=== PATIENT | male | born 1985 | race Two or more races ===

== ENCOUNTER 2016-12-23 09:17 | Outpatient (CLI) | payer MEDICAID | END 2016-12-23 09:18 | disposition home or self-care (01) | DX: G60.9 Hereditary and idiopathic neuropathy, unspecified (principal); Z72.0 Tobacco use ==

== ENCOUNTER 2017-02-21 13:34 | Outpatient (CLI) | payer MEDICAID | END 2017-02-21 13:35 | disposition home or self-care (01) | DX: M51.36 Other intervertebral disc degeneration, lumbar region (principal) ==

== ENCOUNTER 2017-03-28 10:21 | Emergency (ER) | payer MEDICAID ==
[2017-03-28] MEDS ORDERED: KETOROLAC 60 MG/2 ML VIAL IM STA (12:18)
[2017-03-28] MEDS ORDERED: DEXAMETHASONE 10 MG/ML VIAL IM STA (12:18)
[2017-03-28] MEDS ORDERED: KETOROLAC 60 MG/2 ML VIAL ONE (12:32)
[2017-03-28] MEDS ORDERED: DEXAMETHASONE 10 MG/ML VIAL ONE (12:32)
== END 2017-03-28 12:50 | disposition home or self-care (01) ==
DX: M54.16 Radiculopathy, lumbar region (principal); R03.0 Elevated blood-pressure reading, without diagnosis of hypertension; F17.200 Nicotine dependence, unspecified, uncomplicated

== ENCOUNTER 2017-04-08 16:42 | Emergency (ER) | payer MEDICAID ==
[2017-04-08 16:52] VITALS: BP 154/116
--- NOTE | 2017-04-08 16:58 | ED Physician Documentation ---
PD HPI LOWER EXT INJURY - Stated complaint Stated Complaint: RT LEG PX - Chief complaint Chief Complaint: General - History obtained from History obtained from: Patient - History of Present Illness PD HPI LOW EXT INJURY LOCATION: Right, Hip, Lower leg, Thigh Type of injury: No: Fall, Twist Where injury occurred: Home Timing - details: Gradual onset, Still present Improved by: No: Rest, Meds Worsened by: Palpating Associated symptoms: Numbness (he has had low back pain for 5 years, treated with PT and chronic pain meds in [place] when lived there. Moved here and has PCP doing med trials and got patine in for PT, which he has done for a month without improvement. He is here due to worse pain. Has numb but yet more intensely sensitive front thigh. No involvement in lower GI.) Similar symptoms before: Diagnosis (lumbar radiculopathy) Review of Systems Constitutional: denies: Fever Skin: denies: Rash PD PAST MEDICAL HISTORY - Past Medical History Cardiovascular: None Respiratory: None Neuro: None Endocrine/Autoimmune: None GI: None : None HEENT: None Psych: None Musculoskeletal: None Derm: None - Past Surgical History Past Surgical History: Yes General: Other - Present Medications Home Medications: Ambulatory Orders Medication Instructions Recorded Confirmed Cyclobenzaprine [Flexeril] 10 mg PO TID PRN #20 tablet 03/28/17 oxyCODONE [Roxicodone] 5 mg PO Q4-6H PRN #20 tablet 03/28/17 predniSONE [Deltasone] 20 mg PO [id number] #21 tab 03/28/17 Amitriptyline HCl 50 mg PO DAILY #30 tablet 04/08/17 Cyclobenzaprine [Flexeril] 10 mg PO TID PRN #30 tablet 04/08/17 oxyCODONE [Roxicodone] 5 mg PO TID PRN #30 tablet 04/08/17 - Allergies Allergies/Adverse Reactions: Allergies Allergy/AdvReac Type Severity Reaction Status Date / Time acetaminophen AdvReac Cramps Verified 03/28/17 10:34 aspirin AdvReac Cramps Verified 03/28/17 10:34 - Social History Does the pt smoke?: Yes Smoking Status: Current every day smoker Does the pt drink ETOH?: No Does the pt have substance abuse?: No - Immunizations Immunizations are current?: Yes - POLST Patient has POLST: No PD ED PE NORMAL - Vitals Vital signs reviewed: Yes - General General: Alert and oriented X 3, Well developed/nourished - Derm Derm: Warm and dry. No: Normal color - Neuro Neuro: No motor deficit, No sensory deficit - Psych Psych: Normal mood Results - Vitals Vitals: Vital Signs - 24 hr 04/08/17 16:45 Temperature 36 C L Heart Rate 100 Respiratory 18 Rate Blood Pressure 154/116 H O2 Saturation 98 Oxygen O2 Source Room air Departure - Departure Disposition: Home, Self Care Clinical Impression: Lumbar radiculopathy, Right leg pain Condition: Stable Record reviewed to determine appropriate education?: Yes Instructions: ED Sciatica Follow-Up: [facility] [Provider Group] [facility] [Provider Group] Darwin Savage PA-C [Credentialed Staff Provider] - Prescriptions: Amitriptyline HCl 50 mg PO DAILY #30 tablet Cyclobenzaprine [Flexeril] 10 mg PO TID PRN #30 tablet PRN Reason: Spasms oxyCODONE [Roxicodone] 5 mg PO TID PRN #30 tablet PRN Reason: Pain Comments: Continue the Flexeril for spasms and the Oxycodone for pain as needed as directed. Start Amitryptylline 50 mg nightly to see if helps with overall nerve pain. Follow up with PCP about next steps [facility]. [facility] also lists [facility] and [facility] as accepting your insurance. At least one of your blood pressure readings in the ER today was elevated above the normal level. If you have diagnosed high blood pressure in the past, please be sure you are taking your BP medications and eating low salt diet. If you do not have know high BP, then being high today does not mean it is a termination clerk issue. It might be reactively high to the situation that has you here. You should follow up with your primary care to have the blood pressure checked again in the next few days/week or so to see if it is persistently high. If so, then you may need medication or changes in diet/lifestyle to treat it. Discharge Date/Time: 04/08/17 17:56
[2017-04-08] MEDS ORDERED: CYCLOBENZAPRINE 10 MG TABLET PO STA (17:33)
[2017-04-08] MEDS ORDERED: oxyCODONE 5 MG TABLET PO STA (17:33)
[2017-04-08] MEDS ORDERED: oxyCODONE 5 MG TABLET ONE (17:47)
[2017-04-08] MEDS ORDERED: CYCLOBENZAPRINE 10 MG TABLET PO ONE (17:47)
== END 2017-04-08 17:56 | disposition home or self-care (01) ==
LOC: ED 16:42
DX: M54.16 Radiculopathy, lumbar region (principal); R03.0 Elevated blood-pressure reading, without diagnosis of hypertension; F17.200 Nicotine dependence, unspecified, uncomplicated
CPT/HCPCS: 99283; A9270

== ENCOUNTER 2017-04-12 21:15 | Emergency (ER) | payer MEDICAID ==
[2017-04-12 21:36] VITALS: BP 137/94
[2017-04-12] MEDS ORDERED: HYDROcod/ACET 5/325 Prepack 6 PO STA (23:10)
[2017-04-12] MEDS ORDERED: DOXYCYCLINE 100 MG TABLET PO STA (23:10)
[2017-04-12] MEDS ORDERED: HYDROcod/ACET 5/325 Prepack 6 PO ONE (23:13)
[2017-04-12] MEDS ORDERED: DOXYCYCLINE 100 MG TABLET PO ONE (23:14)
--- NOTE | 2017-04-12 23:14 | ED Physician Documentation ---
History of Present Illness - Stated complaint Stated Complaint: FEVER/COUGH/BACK PX - Chief complaint Chief Complaint: General - History obtained from History obtained from: Patient - History of Present Illness Timing: Other (2 days a very bad cough with significant back pain with coughing and and fevers and chills.) Review of Systems Constitutional: reports: Fever, Chills Nose: denies: Rhinorrhea / runny nose, Congestion Throat: reports: Sore throat Respiratory: reports: Dyspnea, Cough GI: denies: Nausea, Vomiting PD PAST MEDICAL HISTORY - Past Medical History Cardiovascular: None Respiratory: None Neuro: None Endocrine/Autoimmune: None GI: None : None HEENT: None Psych: None Musculoskeletal: None Derm: None - Past Surgical History Past Surgical History: Yes General: Other - Present Medications Home Medications: Ambulatory Orders Medication Instructions Recorded Confirmed Cyclobenzaprine [Flexeril] 10 mg PO TID PRN #20 tablet 03/28/17 oxyCODONE [Roxicodone] 5 mg PO Q4-6H PRN #20 tablet 03/28/17 predniSONE [Deltasone] 20 mg PO [id number] #21 tab 03/28/17 Amitriptyline HCl 50 mg PO DAILY #30 tablet 04/08/17 Cyclobenzaprine [Flexeril] 10 mg PO TID PRN #30 tablet 04/08/17 oxyCODONE [Roxicodone] 5 mg PO TID PRN #30 tablet 04/08/17 Albuterol Sulfate [Proventil Hfa 1 - 2 puffs IH Q4H PRN #1 04/12/17 Inhaler] hfa.aer.ad Doxycycline Hyclate 100 mg PO BID #14 tablet 04/12/17 guaiFENesin/CODEINE [Robitussin AC] 5 - 10 ml PO Q6H PRN #120 ml 04/12/17 - Allergies Allergies/Adverse Reactions: Allergies Allergy/AdvReac Type Severity Reaction Status Date / Time acetaminophen AdvReac Cramps Verified 03/28/17 10:34 aspirin AdvReac Cramps Verified 03/28/17 10:34 - Social History Does the pt smoke?: Yes Smoking Status: Current every day smoker Does the pt drink ETOH?: No Does the pt have substance abuse?: No - Immunizations Immunizations are current?: Yes - POLST Patient has POLST: No PD ED PE NORMAL - Vitals Vital signs reviewed: Yes - General General: Alert and oriented X 3, No acute distress - HEENT HEENT: Pharynx benign - Neck Neck: Supple, no meningeal sign, No bony TTP - Cardiac Cardiac: RRR, No murmur - Respiratory Respiratory: Other (Diminished at both bases with rhonchi at the right base) - Abdomen Abdomen: Soft, Non tender - Derm Derm: Normal color, Warm and dry - Extremities Extremities: No edema, No calf tenderness / cord - Neuro Neuro: Alert and oriented X 3, Normal speech - Psych Psych: Normal mood, Normal affect Results - Vitals Vitals: Vital Signs - 24 hr 04/12/17 21:33 Temperature 37.3 C Heart Rate 110 H Respiratory 17 Rate Blood Pressure 137/94 H O2 Saturation 98 Oxygen O2 Source Room air Departure - Departure Disposition: 01 Home, Self Care Clinical Impression: Bronchitis Condition: Good Record reviewed to determine appropriate education?: Yes Instructions: ED Bronchitis Asthmatic Prescriptions: Doxycycline Hyclate 100 mg PO BID #14 tablet Albuterol Sulfate [Proventil Hfa Inhaler] 1 - 2 puffs IH Q4H PRN #1 hfa.[email or web address] PRN Reason: Cough guaiFENesin/CODEINE [Robitussin AC] 5 - 10 ml PO Q6H PRN #120 ml PRN Reason: Cough Comments: Call your doctor to arrange a follow up appointment. Make the next available appointment. In the interim return anytime if worse or if new symptoms develop. Your blood pressure was elevated today on check in to the emergency department. This does not mean that you have hypertension, it is a common phenomenon to check into the emergency department and have elevated blood pressure. I recommend that you see your primary care physician within the week to have it rechecked when you're feeling better.
== END 2017-04-12 23:20 | disposition home or self-care (01) ==
LOC: ED 21:15
DX: J40 Bronchitis, not specified as acute or chronic (principal); R03.0 Elevated blood-pressure reading, without diagnosis of hypertension; F17.200 Nicotine dependence, unspecified, uncomplicated
CPT/HCPCS: 99283; A9270

== ENCOUNTER 2017-04-30 17:05 | Emergency (ER) | payer MEDICAID ==
[2017-04-30 17:11] VITALS: BP 149/99
--- NOTE | 2017-04-30 17:27 | ED Physician Documentation ---
PD HPI BACK PAIN - Stated complaint Stated Complaint: R LEG PX - Chief complaint Chief Complaint: Ext Problem - History obtained from History obtained from: Patient - History of Present Illness Timing - onset: Other (31-year-old gentleman with chronic sciatica causing right hip and leg pain, burning sensation that affects him daily. There is no saddle anesthesia or incontinence. He is having trouble with his physician right now, not getting any significant treatments and wanting an MRI. There is no acute issue today.) Review of Systems Constitutional: reports: Reviewed and negative Cardiac: reports: Reviewed and negative Respiratory: reports: Reviewed and negative PD PAST MEDICAL HISTORY - Past Medical History Past Medical History: No Cardiovascular: None Respiratory: None Neuro: None Endocrine/Autoimmune: None GI: None : None HEENT: None Psych: None Musculoskeletal: None Derm: None - Past Surgical History Past Surgical History: Yes General: Other - Present Medications Home Medications: Ambulatory Orders Medication Instructions Recorded Confirmed Cyclobenzaprine [Flexeril] 10 mg PO TID PRN #20 tablet 03/28/17 04/30/17 oxyCODONE [Roxicodone] 5 mg PO Q4-6H PRN #20 tablet 03/28/17 04/30/17 predniSONE [Deltasone] 20 mg PO [id number] #21 tab 03/28/17 04/30/17 Amitriptyline HCl 50 mg PO DAILY #30 tablet 04/08/17 04/30/17 Cyclobenzaprine [Flexeril] 10 mg PO TID PRN #30 tablet 04/08/17 04/30/17 oxyCODONE [Roxicodone] 5 mg PO TID PRN #30 tablet 04/08/17 04/30/17 Albuterol Sulfate [Proventil Hfa 1 - 2 puffs IH Q4H PRN #1 04/12/17 04/30/17 Inhaler] hfa.aer.ad Amitriptyline HCl 50 mg PO DAILY #14 tablet 04/30/17 Cyclobenzaprine [Flexeril] 10 mg PO TID PRN #20 tablet 04/30/17 oxyCODONE [Roxicodone] 5 mg PO Q4-6H PRN #14 tablet 04/30/17 - Allergies Allergies/Adverse Reactions: Allergies Allergy/AdvReac Type Severity Reaction Status Date / Time acetaminophen AdvReac Cramps Verified 03/28/17 10:34 aspirin AdvReac Cramps Verified 03/28/17 10:34 - Social History Does the pt smoke?: Yes Smoking Status: Current every day smoker Does the pt drink ETOH?: No Does the pt have substance abuse?: No - Immunizations Immunizations are current?: Yes - POLST Patient has POLST: No PD ED PE NORMAL - Vitals Vital signs reviewed: Yes - General General: Alert and oriented X 3, No acute distress - Neck Neck: Supple, no meningeal sign, No bony TTP - Extremities Extremities: Other (Incomplete numbness over the anterior right thigh with intact patellar and Achilles reflexes.) - Neuro Neuro: Alert and oriented X 3, Normal speech - Psych Psych: Normal mood, Normal affect Results - Vitals Vitals: Vital Signs - 24 hr 04/30/17 17:07 Temperature 36.2 C L Heart Rate 114 H Respiratory 18 Rate Blood Pressure 149/99 H O2 Saturation 97 Oxygen O2 Source Room air PD MEDICAL DECISION MAKING - ED course ED course: There is no acute complaint today, no evidence of cauda equina or epidural abscess. I discussed with him at length that he does have chronic pain issues and that well an MRI may be warranted given the time course, I have no ability to obtain this today and at further prescriptions must be from his primary care physician given that this is his third visit this month for an apparent lumbar radiculopathy. Departure - Departure Disposition: 01 Home, Self Care Clinical Impression: Lumbar radiculopathy Condition: Good Record reviewed to determine appropriate education?: Yes Instructions: ED Sciatica Prescriptions: Amitriptyline HCl 50 mg PO DAILY #14 tablet Cyclobenzaprine [Flexeril] 10 mg PO TID PRN #20 tablet PRN Reason: Pain oxyCODONE [Roxicodone] 5 mg PO Q4-6H PRN #14 tablet PRN Reason: Pain Comments: DISCUSSED, YOU HAVE EVIDENCE OF A RADICULOPATHY "PINCHED NERVE" IN YOUR BACK SENDING PAIN TO YOUR HIP AND LEG. GIVEN THAT THIS HAS BEEN GOING ON FOR 5 YEARS , DISCUSS WITH OUR PCP AN MRI OF YOUR BACK TO SEE IF AN INTERVENTIONAL APPROACH IS WARRANTED GIVEN THAT THIS PAIN SIGNIFICANTLY IMPACTS YOUR DAILY LIFE. PER OUR POLICY THIS EMERGENCY DEPT WILL NOT GIVE NARCOTIC PAIN MEDICATIONS MORE THAN 3 TIMES PER YEAR, OF THIS VISIT YOU ARE SURPASSING THAT BRADLY AND FURTHER PRESCRIPTIONS MUST BE FROM YOUR DOCTOR. Your blood pressure was elevated today on check in to the emergency department. This does not mean that you have hypertension, it is a common phenomenon to check into the emergency department and have elevated blood pressure. I recommend that you see your primary care physician within the week to have it rechecked when you're feeling better.
== END 2017-04-30 17:39 | disposition home or self-care (01) ==
LOC: ED 17:05
DX: M54.16 Radiculopathy, lumbar region (principal); R03.0 Elevated blood-pressure reading, without diagnosis of hypertension; F17.200 Nicotine dependence, unspecified, uncomplicated
CPT/HCPCS: 99283

== ENCOUNTER 2017-06-07 11:42 | Emergency (ER) | payer MEDICAID ==
--- NOTE | 2017-06-07 13:37 | ED Physician Documentation ---
PD HPI BACK PAIN - Stated complaint Stated Complaint: R LEG PX - Chief complaint Chief Complaint: Ext Problem - History obtained from History obtained from: Patient - History of Present Illness Timing - onset: Chronic Timing - duration: Years (5) Timing - details: Constant Pain level max: 8 Pain level now: 8 Location: Lower, Right Quality: Pain, Spasm, Sharp, Aching, Similar to prior episodes Associated symptoms: No: Fever, Weakness, Numbness, Incontinent of urine, Unable to urinate, Hematuria, Incontinent of stool Improves with: Nothing Worsened by: Movement Contributing factors: No: Cancer, IVDA Similar symptoms before: Diagnosis (chronic back pain) - Additional information Additional information: Patient is a 31-year-old gentleman who presents to the emergency department with right lower back and thigh pain. This is chronic and ongoing for the past 5 years. He states that he has recently changed providers and is now following up with a doctor in [place]. He states that his pain has become worse over the past few days and is unable to sleep. Denies any new neurological changes. Has had MRIs in the past, has seen orthopedists in the past, but none recently. No recent spine surgeon consult. No loss of bowel or bladder control. No fevers. He is very unhappy with his prior primary care provider. Review of Systems Constitutional: denies: Fever, Chills Respiratory: denies: Cough GI: denies: Abdominal Pain, Vomiting, Diarrhea : denies: Dysuria, Incontinent Skin: denies: Rash Musculoskeletal: denies: Neck pain Neurologic: denies: Focal weakness, Numbness, Headache PD PAST MEDICAL HISTORY - Past Medical History Past Medical History: Yes Cardiovascular: None Respiratory: None Neuro: None Endocrine/Autoimmune: None GI: None : None HEENT: None Psych: None Musculoskeletal: None, Chronic back pain Derm: None - Past Surgical History Past Surgical History: Yes General: Other Ortho: Carpal Tunnel surgery - Present Medications Home Medications: Ambulatory Orders Medication Instructions Recorded Confirmed Cyclobenzaprine [Flexeril] 10 mg PO TID PRN #20 tablet 03/28/17 06/07/17 Amitriptyline HCl 50 mg PO DAILY #14 tablet 04/30/17 06/07/17 Carisoprodol [Soma] 350 mg PO Q8H PRN #20 tablet 06/07/17 Ibuprofen 1,200 mg PO DAILY 06/07/17 06/07/17 oxyCODONE [Roxicodone] 5 mg PO Q4-6H PRN #10 tablet 06/07/17 - Allergies Allergies/Adverse Reactions: Allergies Allergy/AdvReac Type Severity Reaction Status Date / Time acetaminophen AdvReac Cramps Verified 06/07/17 11:55 aspirin AdvReac Cramps Verified 06/07/17 11:55 - Social History Does the pt smoke?: Yes Smoking Status: Current every day smoker Does the pt drink ETOH?: No Does the pt have substance abuse?: No - Immunizations Immunizations are current?: Yes - POLST Patient has POLST: No PD ED PE NORMAL - Vitals Vital signs reviewed: Yes - General General: Alert and oriented X 3, No acute distress, Well developed/nourished - HEENT HEENT: Moist mucous membranes - Neck Neck: Supple, no meningeal sign - Cardiac Cardiac: RRR, Strong equal pulses - Respiratory Respiratory: No respiratory distress, Clear bilaterally - Abdomen Abdomen: Soft, Non tender, Non distended - Back Back: No spinal TTP, Other (Mild tenderness to palpation bilateral paraspinal, low lumbar. Right greater than left. No midline tenderness to palpation or percussion.) - Derm Derm: Warm and dry - Extremities Extremities: Other (normal bilateral lower extremity patellar and ankle jerk reflexes. Normal great toe extension bilaterally) - Neuro Neuro: Alert and oriented X 3, No motor deficit, No sensory deficit - Psych Psych: Normal mood, Normal affect Results - Vitals Vitals: Vital Signs - 24 hr 06/07/17 06/07/17 11:52 13:47 Temperature 36.1 C L 36.6 C Heart Rate 77 72 Respiratory 14 20 Rate Blood Pressure 145/96 H 138/101 H O2 Saturation 100 98 Oxygen O2 Source Room air PD MEDICAL DECISION MAKING - ED course Complexity details: reviewed old records, re-evaluated patient, considered differential (no cauda equina, no spinal epidural abscess, no fracture, no aortic dissection or evidence of aneursym rupture), d/w patient ED course: Patient is a 31-year-old gentleman with a long-standing history of right low back pain. Patient is driving, so no altering medications were given in the emergency department. No new neurological deficits. No evidence of cauda equina or epidural abscess. He did recently switch primary care providers and I informed him that he would need to follow-up with them for any further pain medication for his back. Will prescribe a small amount of pain medications today. He is ambulating quite well in the emergency department. Afebrile. Patient counseled regarding signs and symptoms for which I believe and urgent re -evaluation would be necessary. Patient with good understanding of and agreement to plan and is comfortable going home at this time This document was made in part using voice recognition software. While efforts are made to proofread this document, sound alike and grammatical errors may occur. Departure - Departure Disposition: Home, Self Care Clinical Impression: Lumbar radiculopathy Condition: Good Instructions: ED Sciatica Follow-Up: your,doctor in 1 week [Other] Prescriptions: oxyCODONE [Roxicodone] 5 mg PO Q4-6H PRN #10 tablet PRN Reason: back pain Carisoprodol [Soma] 350 mg PO Q8H PRN #20 tablet PRN Reason: back pain Comments: You need to follow-up with your new doctor in [place] for your chronic back pain issues. Further medications will need to come from them. Do not drink alcohol or drive while on narcotic pain medicine. Note that many narcotic pain relievers also contain tylenol/acetaminophen. Please ensure that your total dose of acetaminophen from all sources does not exceed 3 grams (3000mg) per day. You may constipated on this medication, take a stool softener such as "Colace" twice a day while you are on it. Also recommend a [id number] laxative such as senna or MiraLAX any day that you do not have a bowel movement. If you received narcotic pain medication in the emergency department, do not drive or operate machinery for the next 24 hours. Discharge Date/Time: 06/07/17 13:49
[2017-06-07 13:49] VITALS: BP 138/101
== END 2017-06-07 13:49 | disposition home or self-care (01) ==
LOC: ED 11:42
DX: M54.16 Radiculopathy, lumbar region (principal); F17.200 Nicotine dependence, unspecified, uncomplicated
CPT/HCPCS: 99283

== ENCOUNTER 2017-07-09 18:33 | Emergency (ER) | payer MEDICAID ==
[2017-07-09 18:57] VITALS: BP 136/89
--- NOTE | 2017-07-09 20:01 | ED Physician Documentation ---
PD HPI BACK PAIN - Stated complaint Stated Complaint: BACK PX - Chief complaint Chief Complaint: Back Pain - History obtained from History obtained from: Patient - History of Present Illness Timing - onset: Chronic (5 years) Timing - duration: Years (5) Timing - details: Gradual onset, Constant Pain level max: 8 Pain level now: 8 Location: Lower, Right Quality: Pain, Spasm, Similar to prior episodes Associated symptoms: No: Fever, Weakness, Numbness, Incontinent of urine, Unable to urinate, Hematuria, Incontinent of stool Improves with: Rest Worsened by: Movement Contributing factors: No: Lifting, Twisting, Trauma, Anticoagulated, Cancer, IVDA, Out of meds Similar symptoms before: Diagnosis (chronic back pain, herniated discs) Recently seen: Clinic (for steroid injection yesterday.) Review of Systems Constitutional: denies: Fever, Chills Nose: denies: Rhinorrhea / runny nose, Congestion Throat: denies: Sore throat GI: denies: Nausea, Vomiting, Diarrhea Skin: denies: Rash Musculoskeletal: denies: Neck pain Neurologic: denies: Focal weakness, Numbness, Headache PD PAST MEDICAL HISTORY - Past Medical History Cardiovascular: None Respiratory: None Neuro: None Endocrine/Autoimmune: None GI: None : None HEENT: None Psych: None Musculoskeletal: None, Chronic back pain Derm: None - Past Surgical History Past Surgical History: Yes General: Other Ortho: Carpal Tunnel surgery - Present Medications Home Medications: Ambulatory Orders Medication Instructions Recorded Confirmed Cyclobenzaprine [Flexeril] 10 mg PO TID PRN #20 tablet 03/28/17 06/07/17 Amitriptyline HCl 50 mg PO DAILY #14 tablet 04/30/17 06/07/17 Carisoprodol [Soma] 350 mg PO Q8H PRN #20 tablet 06/07/17 Ibuprofen 1,200 mg PO DAILY 06/07/17 06/07/17 oxyCODONE [Roxicodone] 5 mg PO Q4-6H PRN #10 tablet 06/07/17 oxyCODONE [Roxicodone] 5 mg PO Q4-6H PRN #10 tablet 07/09/17 - Allergies Allergies/Adverse Reactions: Allergies Allergy/AdvReac Type Severity Reaction Status Date / Time acetaminophen AdvReac Cramps Verified 07/09/17 18:57 aspirin AdvReac Cramps Verified 07/09/17 18:57 - Social History Does the pt smoke?: Yes Smoking Status: Current every day smoker Does the pt drink ETOH?: No Does the pt have substance abuse?: No - Immunizations Immunizations are current?: Yes - POLST Patient has POLST: No PD ED PE NORMAL - Vitals Vital signs reviewed: Yes - General General: Alert and oriented X 3, No acute distress - HEENT HEENT: Moist mucous membranes - Neck Neck: Supple, no meningeal sign - Cardiac Cardiac: RRR, Strong equal pulses - Respiratory Respiratory: No respiratory distress, Clear bilaterally - Abdomen Abdomen: Soft, Non tender, Non distended - Back Back: No spinal TTP, Other (R low lumbar injection site without signs of infection.) - Derm Derm: Warm and dry - Neuro Neuro: Alert and oriented X 3 - Psych Psych: Normal mood, Normal affect Results - Vitals Vitals: Vital Signs - 24 hr 07/09/17 18:40 Temperature 36.6 C Heart Rate 114 H Respiratory 14 Rate Blood Pressure 136/89 H O2 Saturation 100 Oxygen O2 Source Room air PD MEDICAL DECISION MAKING - ED course Complexity details: reviewed old records, considered differential (no cauda equina, no spinal epidural abscess, no fracture, no aortic dissection or evidence of aneursym rupture), d/w patient ED course: Patient is a 31-year-old male who presents to the emergency department with chronic back pain. He recently had a steroid injection and the pain seems to be worsened after that. Will prescribe a very small amount of pain medication for home for him. Informed that we will no longer be able to prescribe narcotic pain medication for him from this emergency department due to his number of visits in the past year. He does have a new PCP that he has established with and willl need to obtain further pain medications from them. He is ambulating well in the emergency department. No acute neurological deficits. No evidence of cauda equina, epidural abscess. No fevers. No pain to percussion. Patient counseled regarding signs and symptoms for which I believe and urgent re-evaluation would be necessary. Patient with good understanding of and agreement to plan and is comfortable going home at this time This document was made in part using voice recognition software. While efforts are made to proofread this document, sound alike and grammatical errors may occur. Departure - Departure Disposition: 01 Home, Self Care Clinical Impression: Lumbar radiculopathy Back pain Qualifiers: Back pain location: low back pain Chronicity: chronic Back pain laterality: right Sciatica presence: with sciatica Sciatica laterality: sciatica of right side Qualified Code(s): M54.41 - Lumbago with sciatica, right side Condition: Good Instructions: ED Low Back Pain Injury, ED Sciatica Follow-Up: your,doctor in 1 week [Other] Prescriptions: oxyCODONE [Roxicodone] 5 mg PO Q4-6H PRN #10 tablet PRN Reason: back pain Comments: Return if you worsen. This should improve over the next several days. Follow- up with your doctor on Tuesday. Do not drink alcohol or drive while on narcotic pain medicine. Note that many narcotic pain relievers also contain tylenol/acetaminophen. Please ensure that your total dose of acetaminophen from all sources does not exceed 3 grams (3000mg) per day. You may constipated on this medication, take a stool softener such as "Colace" twice a day while you are on it. Also recommend a qfzh-laj-onlxdis laxative such as senna or MiraLAX any day that you do not have a bowel movement. If you received narcotic pain medication in the emergency department, do not drive or operate machinery for the next 24 hours. Your blood pressure was elevated today on check in to the emergency department. This does not mean that you have hypertension, it is a common phenomenon to check into the emergency department and have elevated blood pressure. I recommend that you see your primary care physician within the week to have it rechecked when you're feeling better. Discharge Date/Time: 07/09/17 20:27
[2017-07-09] MEDS ORDERED: oxyCODONE 5 MG TABLET PO STA (20:18)
[2017-07-09] MEDS ORDERED: oxyCODONE 5 MG TABLET ONE (20:26)
== END 2017-07-09 20:27 | disposition home or self-care (01) ==
LOC: ED 18:33
DX: M54.16 Radiculopathy, lumbar region (principal); M54.41 Lumbago with sciatica, right side; G89.29 Other chronic pain; R03.0 Elevated blood-pressure reading, without diagnosis of hypertension; F17.200 Nicotine dependence, unspecified, uncomplicated
CPT/HCPCS: 99283; A9270

== ENCOUNTER 2017-10-15 11:02 | Outpatient (CLI) | payer MEDICAID ==
--- NOTE | 2017-10-15 18:04 | Ultrasound Report ---
EXAM: INGUINAL ULTRASOUND EXAM DATE: 10/15/2017 11:24 a.m. CLINICAL HISTORY: Right inguinal pain. COMPARISON: None. TECHNIQUE: Real-time sonographic imaging of the inguinal canals and vascular structures, including co aspen-flow, was performed by the manager social. Multiple abrasives sales representative static images were saved for revi ew. FINDINGS: Hernia: None identified with or without Valsalva. Soft Tissues: Normal. No fluid collections or adenopathy. Soft tissue nodular structure measuring 0.8 x 0.6 x 0.7 cm with central vascularity and hypoechoic cortex. Configuration is most consistent with a small morphologically normal lymph node. Second hypoechoic structure measuring 0.9 x 0.8 x 0.6 cm is noted in the subcutaneous fat. Minimal central flow. Overall configuration is indeterminate but be nign in appearance. Other: None. IMPRESSION: 1. No inguinal hernia evident. 2. Probable morphologically normal lymph nodes are present in the right inguinal region measuring 0.8 x 0.6 x 0.7 cm and 0.9 x 0.8 x 0.6 cm, respectively. No concerning features. 3. If symptoms persist or remain concerning, recommend contrast-enhanced CT performed with Valsalva. [facility] Referring Provider Line: [phone] SITE ID: [id number]
== END 2017-10-15 11:03 | disposition home or self-care (01) ==
LOC: DI 11:02
PROVIDERS: ATTEND Student in an Organized Health Care Education/Training Program
DX: R10.31 Right lower quadrant pain (principal)
CPT/HCPCS: 76705

== ENCOUNTER 2017-12-06 14:53 | Outpatient (CLI) | payer MEDICAID ==
--- NOTE | 2017-12-07 09:57 | Ultrasound Report ---
DATE OF SERVICE: 12/06/2017 LIMITED ABDOMINAL ULTRASOUND: 12/06/2017 CLINICAL INDICATION: Palpable abnormalities right flank soft tissues. TECHNIQUE: Real-time scanning was performed with retail account representative static images obtained. FINDINGS: Ultrasound of the palpable abnormalities in the right flank was performed. Three simple lipomas are seen, the largest measuring 1.2 cm in diameter. No sonographically suspicious findings are identified. IMPRESSION: THREE SIMPLE LIPOMAS ACCOUNTING FOR THE PALPABLE ABNORMALITIES. TD: 12/07/2017 10:56
== END 2017-12-06 14:54 | disposition home or self-care (01) ==
LOC: DI 14:53
PROVIDERS: ATTEND Internal Medicine
DX: D17.1 Benign lipomatous neoplasm of skin and subcutaneous tissue of trunk (principal)
CPT/HCPCS: 76705

== ENCOUNTER 2018-01-16 17:59 | Emergency (ER) | payer MEDICAID ==
--- NOTE | 2018-01-16 19:56 | ED Physician Documentation ---
PD HPI BACK PAIN - Stated complaint Stated Complaint: R HIP PX - Chief complaint Chief Complaint: General - History obtained from History obtained from: Patient - History of Present Illness Timing - onset: How many days ago (7-8 days of worse pain at hip; has had anterior thigh pain for months.) Timing - duration: Days Timing - details: Gradual onset, Still present Quality: Pain, Sharp Associated symptoms: Numbness (anterior right thigh.). No: Fever, Weakness Worsened by: Movement, Lifting, Palpation Contributing factors: No: Lifting, Twisting, Trauma Similar symptoms before: No diagnosis Recently seen: Not recently seen Review of Systems Constitutional: denies: Fever, Chills, Myalgias GI: denies: Abdominal Pain, Nausea, Vomiting Skin: denies: Rash PD PAST MEDICAL HISTORY - Past Medical History Past Medical History: Yes Cardiovascular: None Respiratory: None Neuro: None Endocrine/Autoimmune: None GI: None : None HEENT: None Psych: None Musculoskeletal: None, Chronic back pain Derm: None - Past Surgical History Past Surgical History: Yes General: Other Ortho: Carpal Tunnel surgery - Present Medications Home Medications: Ambulatory Orders Medication Instructions Recorded Confirmed Ibuprofen 1,200 mg PO DAILY 06/07/17 06/07/17 Dexamethasone [Decadron] 4 mg PO DAILY #5 tablet 01/16/18 Hydrocodone/Acetaminophen [Vicodin 1 each PO 01/16/18 5-300 mg Tablet] Naproxen [Naprosyn] 500 mg PO BID #20 tablet 01/16/18 - Allergies Allergies/Adverse Reactions: Allergies Allergy/AdvReac Type Severity Reaction Status Date / Time aspirin AdvReac Mild Rash Verified 01/16/18 18:20 acetaminophen AdvReac Cramps Verified 07/09/17 18:57 - Social History Does the pt smoke?: Yes Smoking Status: Current every day smoker Does the pt drink ETOH?: No Does the pt have substance abuse?: No - Immunizations Immunizations are current?: Yes - POLST Patient has POLST: No PD ED PE NORMAL - Vitals Vital signs reviewed: Yes - General General: Alert and oriented X 3, No acute distress, Well developed/nourished - Cardiac Cardiac: RRR, No murmur - Respiratory Respiratory: Clear bilaterally - Abdomen Abdomen: Normal bowel sounds, Soft, Non tender, Non distended - Male Male : Deferred - Rectal Rectal: Deferred - Back Back: No CVA TTP, No spinal TTP - Derm Derm: Normal color, Warm and dry, Other (tender lateral anterior iliac area. no redness.) - Extremities Extremities: No: Normal ROM s pain (pain with external rotation active and crossover knee passively.) Results - Vitals Vitals: Oxygen O2 Source Room air - Rads (name of study) hip/pelvis CT Radiology: Prelim report reviewed (no acute process) PD MEDICAL DECISION MAKING - ED course Complexity details: considered differential (tender over lateral pelvis at iliac spine anteriorly. seems more like bursitis/tendonitis.), d/w patient Departure - Departure Disposition: Home, Self Care Clinical Impression: Acute right hip pain, Chronic pain of right lower extremity, Right hip tendonitis Condition: Stable Record reviewed to determine appropriate education?: Yes Instructions: Tendonitis and Tenosynovitis Prescriptions: Dexamethasone [Decadron] 4 mg PO DAILY #5 tablet Naproxen [Naprosyn] 500 mg PO BID #20 tablet Comments: Continue usual medications. Follow-up with your primary care about refill or further narcotic medicines. Use Decadron daily for the next 5 days as a steroid anti-inflammatory. Add naproxen twice daily for the next 7-10 days. I think there is some irritation in the tendon or bursa around the hip and hopefully this will improve it. Discharge Date/Time: 01/16/18 22:32
[2018-01-16] MEDS ORDERED: TRIAMCINOLONE 40 MG/ML VIAL IM STA (20:14)
[2018-01-16] MEDS ORDERED: KETOROLAC 60 MG/2 ML VIAL IM STA (20:14)
[2018-01-16] MEDS ORDERED: BUPIVACAINE 0.5% PF 30 ML VIAL SUBQ STA (20:14)
[2018-01-16] MEDS ORDERED: HYDROmorphone 1 MG/ML SYRINGE IM STA (20:14)
--- NOTE | 2018-01-16 21:33 | CT Preliminary Report ---
Exam: CT LOWER EXTREMITY RIGHT W/O IMPRESSION: 1. No bony abnormalities. 2. Small bubbles of gas are seen in the distal gluteus medius laterally and also in the subcutaneous soft tissues, presumed to be from injection. 2. Large fat-containing inguinal hernia [facility] SITE ID: [id number]
[2018-01-16 21:54] VITALS: BP 127/86
--- NOTE | 2018-01-16 22:09 | CT Report ---
EXAM: RIGHT HIP CT WITHOUT CONTRAST EXAM DATE: 01/16/2018 09:16 PM. CLINICAL HISTORY: Right hip pain radiating down front of leg. COMPARISON: None. TECHNIQUE: Thin-section axial images were acquired of the hip without contrast. Post-processing: [place] nal and sagittal reformats. Other: None. In accordance with CT protocol optimization, one or more of the following dose reduction techniques w ere utilized for this exam: automated exposure control, adjustment of mA and/or KV based on patient s ize, or use of iterative reconstructive technique. FINDINGS: Bones: No fracture or bone lesion. Joints: The visualized hip joint spaces are normal. No calcified loose bodies. No large effusions. Th e other visualized joint spaces are normal. Musculature: Normal. No fatty atrophy. Other: Small bubbles of gas are seen in the distal gluteus medius and also in the subcutaneous soft t issues, presumed from injection. Large fat-containing inguinal hernia. IMPRESSION: 1. No bony abnormalities. 2. Small bubbles of gas are seen in the distal gluteus medius laterally and also in the subcutaneous soft tissues, presumed to be from injection. 3. Large fat-containing inguinal hernia. [facility] Referring Provider Line: [phone] SITE ID: [id number]
[2018-01-16] MEDS ORDERED: HYDROcod/ACET 5/325 Prepack 6 PO STA (22:11)
== END 2018-01-16 22:32 | disposition home or self-care (01) ==
LOC: ED 17:59
DX: M25.551 Pain in right hip (principal); G89.29 Other chronic pain; M76.891 Other specified enthesopathies of right lower limb, excluding foot; F17.200 Nicotine dependence, unspecified, uncomplicated
CPT/HCPCS: 96372; 99283

== ENCOUNTER 2018-04-25 14:49 | Outpatient (CLI) | payer MEDICAID | END 2018-04-25 14:50 | disposition home or self-care (01) | LOC: SC 14:49 | PROVIDERS: ATTEND Nurse Practitioner Family | DX: G47.33 Obstructive sleep apnea (adult) (pediatric) (principal); E66.9 Obesity, unspecified; Z68.41 Body mass index [BMI] 40.0-44.9, adult; G47.20 Circadian rhythm sleep disorder, unspecified type; G25.81 Restless legs syndrome; G47.00 Insomnia, unspecified; R06.83 Snoring; G47.10 Hypersomnia, unspecified; R53.83 Other fatigue; G31.84 Mild cognitive impairment of uncertain or unknown etiology | CPT/HCPCS: 99204; 99212 ==

== ENCOUNTER 2018-05-05 18:16 | Emergency (ER) | payer MEDICAID ==
--- NOTE | 2018-05-05 18:35 | ED Physician Documentation ---
History of Present Illness - Stated complaint Stated Complaint: SORE THROAT - Chief complaint Chief Complaint: General - History obtained from History obtained from: Patient - History of Present Illness Timing: How many days ago (3) Pain level max: 9 Pain level now: 9 Improved by: nothing Worsened by: swallowing - Additonal information Additional information: Patient is a 32-year-old male who had a tonsillectomy and adenoidectomy [address] [facility] with Dr. Gandhi. He is currently taking oxycodone at home for pain, but states his pain is poorly controlled. States he tried to call Dr. rodriguez today but he was in surgery. Received no call back. Came here for evaluation. No fevers. No bleeding. States it is still painful to swallow. Review of Systems Ten Systems: 10 systems reviewed and negative Constitutional: denies: Fever, Chills Ears: denies: Ear pain Nose: denies: Rhinorrhea / runny nose, Congestion Throat: denies: Sore throat Cardiac: denies: Chest pain / pressure Respiratory: denies: Cough GI: denies: Abdominal Pain, Nausea, Vomiting, Diarrhea Skin: denies: Rash Musculoskeletal: denies: Neck pain, Back pain Neurologic: denies: Headache PD PAST MEDICAL HISTORY - Past Medical History Past Medical History: Yes Cardiovascular: None Respiratory: None Endocrine/Autoimmune: None GI: None : None HEENT: None Psych: None Musculoskeletal: None, Chronic back pain Derm: None - Past Surgical History Past Surgical History: Yes General: Other Ortho: Carpal Tunnel surgery HEENT: Tonsil/Adenoidectomy - Present Medications Home Medications: Ambulatory Orders Medication Instructions Recorded Confirmed Amoxicillin 05/05/18 Lidocaine Viscous 2% [Xylocaine 5 ml PO Q4H PRN #1 bottle 05/05/18 Viscous 2%] Oxycodone HCl 10 ml PO Q4HR 05/05/18 predniSONE [Prednisone] 40 mg PO DAILY #10 tablet 05/05/18 traMADol [Ultram] 50 mg PO BID PRN #14 tablet 05/05/18 - Allergies Allergies/Adverse Reactions: Allergies Allergy/AdvReac Type Severity Reaction Status Date / Time aspirin AdvReac Mild Rash Verified 05/05/18 18:30 acetaminophen AdvReac Cramps Verified 05/05/18 18:30 hydromorphone [From Dilaudid] AdvReac Rash Verified 05/05/18 18:30 - Social History Does the pt smoke?: Yes Smoking Status: Current every day smoker Does the pt drink ETOH?: No Does the pt have substance abuse?: No - Immunizations Immunizations are current?: Yes - POLST Patient has POLST: No PD ED PE NORMAL - Vitals Vital signs reviewed: Yes - General General: Alert and oriented X 3, No acute distress - HEENT HEENT: Moist mucous membranes, Other (pharynx with no signs of infection, mild swelling and mendes from cautery.) - Neck Neck: Supple, no meningeal sign - Cardiac Cardiac: RRR - Respiratory Respiratory: No respiratory distress, Clear bilaterally - Derm Derm: Warm and dry - Neuro Neuro: Alert and oriented X 3 - Psych Psych: Normal mood, Normal affect Results - Vitals Vitals: Vital Signs - 24 hr 05/05/18 05/05/18 18:21 19:04 Temperature 36.6 C 36.7 C Heart Rate 96 95 Respiratory 18 17 Rate Blood Pressure 167/112 H 147/90 H O2 Saturation 97 95 Oxygen O2 Source Room air PD MEDICAL DECISION MAKING - ED course Complexity details: re-evaluated patient (Tolerating p.o. well, well hydrated.) , considered differential, d/w patient, d/w protection consultant ED course: Patient is a 32-year-old male with continued postoperative pain after a tonsillectomy and adenoidectomy 3 days ago. Discussed the case with Dr. Vivas ( production generalist ENT for Dr. Gandhi) And recommends tramadol 50 mg by mouth twice daily and viscous lidocaine as needed for pain. Also recommend steroids. Given dexamethasone here. Will continue supportive care and follow-up with his doctor. Patient counseled regarding signs and symptoms for which I believe and urgent re-evaluation would be necessary. Patient with good understanding of and agreement to plan and is comfortable going home at this time This document was made in part using voice recognition software. While efforts are made to proofread this document, sound alike and grammatical errors may occur. - Sepsis Event Vital Signs: Vital Signs - 24 hr 05/05/18 05/05/18 18:21 19:04 Temperature 36.6 C 36.7 C Heart Rate 96 95 Respiratory 18 17 Rate Blood Pressure 167/112 H 147/90 H O2 Saturation 97 95 Oxygen O2 Source Room air Departure - Departure Disposition: 01 Home, Self Care Clinical Impression: Postoperative pain Condition: Good Instructions: ED Post Op Pain Follow-Up: your,doctor in 1 week [Other] Prescriptions: Lidocaine Viscous 2% [Xylocaine Viscous 2%] 5 ml PO Q4H PRN #1 bottle PRN Reason: throat pain predniSONE [Prednisone] 40 mg PO DAILY #10 tablet traMADol [Ultram] 50 mg PO BID PRN #14 tablet PRN Reason: throat pain Comments: Continue your other medications as previously prescribed. I spoke with Dr. Ortega gardner. Return if you worsen Do not drink alcohol or drive while on narcotic pain medicine. Note that many narcotic pain relievers also contain tylenol/acetaminophen. Please ensure that your total dose of acetaminophen from all sources does not exceed 3 grams (3000mg) per day. You may constipated on this medication, take a stool softener such as "Colace" twice a day while you are on it. Also recommend a vprg-tbm-laisywt laxative such as senna or MiraLAX any day that you do not have a bowel movement. If you received narcotic pain medication in the emergency department, do not drive or operate machinery for the next 24 hours. Discharge Date/Time: 05/05/18 19:15
[2018-05-05] MEDS ORDERED: LIDOCAINE VISCOUS 2% 15 ML UDC MM STA (18:50)
[2018-05-05] MEDS ORDERED: traMADol 50 MG TABLET PO STA (18:50)
[2018-05-05] MEDS ORDERED: DEXAMETHASONE 10 MG/ML VIAL PO STA (18:50)
[2018-05-05 19:04] VITALS: BP 147/90
== END 2018-05-05 19:15 | disposition home or self-care (01) ==
LOC: ED 18:16
DX: G89.18 Other acute postprocedural pain (principal); Z98.890 Other specified postprocedural states; F17.200 Nicotine dependence, unspecified, uncomplicated
CPT/HCPCS: 99283; A9270

== ENCOUNTER 2018-05-14 00:30 | Emergency (ER) | payer MEDICAID ==
[2018-05-14] MEDS ORDERED: SODIUM CHLORIDE 0.9% 1,000 ML IV ONE (00:32)
[2018-05-14 01:04] LABS: BASOPHILS # (AUTO) 0.1 10^3/uL (0.0-0.1); BASOPHILS % (AUTO) 0.8 %; EOSINOPHILS # (AUTO) 0.1 10^3/uL (0.0-0.7); HGB - HEMOGLOBIN 16.4 g/dL (14.0-18.0); LYMPHOCYTES # (AUTO) 4.2 10^3/uL (1.5-3.5); LYMPHOCYTES % (AUTO) 38.7 %; MEAN CORPUSCULAR HEMOGLOBIN 30.3 pg (27.0-31.0); MEAN CORPUSCULAR HGB CONC 34.7 g/dL (32.0-36.0); MEAN CORPUSCULAR VOLUME 87.3 fL (80.0-94.0); MONOCYTES # (AUTO) 1.2 10^3/uL (0.0-1.0); NEUTROPHILS # (AUTO) 5.3 10^3/uL (1.5-6.6); NEUTROPHILS % (AUTO) 48.5 %; PLT - PLATELET COUNT 262 10^3/uL (130-450); RED CELL DISTRIBUTION WIDTH 12.6 % (12.0-15.0); WHITE BLOOD COUNT 10.9 x10^3/uL (4.8-10.8)
[2018-05-14 01:15] LABS: ALBUMIN 3.8 g/dL (3.2-5.5); ALBUMIN/GLOBULIN RATIO 1.1 (1.0-2.2); BILIRUBIN,TOTAL 0.7 mg/dL (0.2-1.0); CALCIUM 8.7 mg/dL (8.5-10.3); CREATININE 0.9 mg/dL (0.6-1.2); TOTAL PROTEIN 7.4 g/dL (6.7-8.2)
[2018-05-14] MEDS ORDERED: KETOROLAC 60 MG/2 ML VIAL IVP STA (01:18)
[2018-05-14] MEDS ORDERED: methylPREDNISolone SUCCINATE 125 MG/2 ML VIAL IVP STA (01:18)
--- NOTE | 2018-05-14 01:21 | ED Physician Documentation ---
PD HPI HEENT - Stated complaint Stated Complaint: THROAT PX/POST SURG - Chief complaint Chief Complaint: Heent - History obtained from History obtained from: Patient - History of Present Illness Timing - onset: How many days ago (11) Timing - details: Gradual onset Location: Throat Worsens: Swalllowing Associated symptoms: No: Fever Similar symptoms before: Work up / diagnostics, Treatment Recently seen: Surgery - Additional information Additional information: Patient is a 32 year old male s/p tonsillectomy and uvula removal about 11 days prior. Patient called his primary doctor because he states that he lost 20 pounds and is unable to eat or swallow. The satellite communications engineer told him to come to the emergency department since it was the middle of the night on tuesday. Review of Systems Ten Systems: 10 systems reviewed and negative Constitutional: denies: Fever, Chills Throat: reports: Oral lesions / sores, Sore throat PD PAST MEDICAL HISTORY - Past Medical History Cardiovascular: None Respiratory: None Endocrine/Autoimmune: None GI: None : None HEENT: None Psych: None Musculoskeletal: None, Chronic back pain Derm: None - Past Surgical History Past Surgical History: Yes General: Other Ortho: Carpal Tunnel surgery HEENT: Tonsil/Adenoidectomy - Present Medications Home Medications: Ambulatory Orders Medication Instructions Recorded Confirmed Oxycodone HCl 10 ml PO Q4HR 05/05/18 Lidocaine Viscous 2% [Xylocaine 5 ml MM Q4H #150 ml 05/14/18 Viscous 2%] Ondansetron Odt [Zofran] 4 mg TL Q6H PRN #14 tablet 05/14/18 traMADol [Ultram] 50 mg PO Q4-6H #14 tablet 05/14/18 - Allergies Allergies/Adverse Reactions: Allergies Allergy/AdvReac Type Severity Reaction Status Date / Time aspirin AdvReac Mild Rash Verified 05/14/18 00:42 acetaminophen AdvReac Cramps Verified 05/14/18 00:42 hydromorphone [From Dilaudid] AdvReac Rash Verified 05/14/18 00:42 - Social History Does the pt smoke?: Yes Smoking Status: Current every day smoker Does the pt drink ETOH?: No Does the pt have substance abuse?: No - Immunizations Immunizations are current?: Yes - POLST Patient has POLST: No PD ED PE NORMAL - Vitals Vital signs reviewed: Yes - General General: Alert and oriented X 3, No acute distress - HEENT HEENT: Atraumatic, Moist mucous membranes - Neck Neck: Supple, no meningeal sign, No adenopathy - Cardiac Cardiac: RRR - Respiratory Respiratory: No respiratory distress - Derm Derm: Normal color, Warm and dry - Extremities Extremities: No deformity - Neuro Neuro: Alert and oriented X 3 Eye Opening: Spontaneous Motor: Obeys Commands Verbal: Oriented GCS Score: 15 PD ED PE EXPANDED - HEENT HEENT: Moist mucous membranes, Other (post surgical changes in throat, granulation tissue present but no sign of acute infection) Results - Vitals Vitals: Vital Signs - 24 hr 05/14/18 05/14/18 00:37 02:20 Temperature 36.7 C Heart Rate 91 78 Respiratory 18 18 Rate Blood Pressure 149/107 H 140/98 H O2 Saturation 98 99 Oxygen O2 Source Room air - Labs Labs: Laboratory Tests 05/14/18 05/14/18 00:55 00:55 WBC 10.9 H RBC 5.40 Hgb 16.4 Hct 47.2 MCV 87.3 MCH 30.3 MCHC 34.7 RDW 12.6 Plt Count 262 MPV 10.0 Neut # (Auto) 5.3 Lymph # (Auto) 4.2 H Thomas # (Auto) 1.2 H Eos # (Auto) 0.1 Baso # (Auto) 0.1 Absolute Nucleated RBC 0.01 Nucleated RBC % 0.1 Sodium 134 L Potassium 3.9 Chloride 103 Carbon Dioxide 23 Anion Gap 8.0 BUN 8 Creatinine 0.9 Estimated GFR (MDRD) 97 Glucose 100 Calcium 8.7 Total Bilirubin 0.7 AST 38 ALT 81 H Alkaline Phosphatase 53 Total Protein 7.4 Albumin 3.8 Globulin 3.6 Albumin/Globulin Ratio 1.1 Lipase 25 PD MEDICAL DECISION MAKING - ED course Complexity details: reviewed old records, reviewed results, re-evaluated patient , considered differential, d/w patient ED course: Patient was seen and examined at bedside. Patient showed no signs of clinical dehydration. patient's vital signs were within normal limits. Patient had a BMI of 40 but his original weight is unknown. IV access was gained and labs were drawn. patient was treated with a fluid bolus, toradol and decadron. Patient's diagnostics were all within normal limits. Patient had no electrolyte imbalance and was euglycemic. Patient required no further inpatient work up and was stable for discharge with outpatient follow up. - Sepsis Event Vital Signs: Vital Signs - 24 hr 05/14/18 05/14/18 00:37 02:20 Temperature 36.7 C Heart Rate 91 78 Respiratory 18 18 Rate Blood Pressure 149/107 H 140/98 H O2 Saturation 98 99 Oxygen O2 Source Room air Departure - Departure Disposition: Home, Self Care Clinical Impression: Postoperative pain Condition: Good Instructions: ANTI-INFLAMMATORY, General Follow-Up: primary,care provider [Other] Prescriptions: Lidocaine Viscous 2% [Xylocaine Viscous 2%] 5 ml MM Q4H #150 ml Ondansetron Odt [Zofran] 4 mg TL Q6H PRN #14 tablet PRN Reason: Nausea / Vomiting traMADol [Ultram] 50 mg PO Q4-6H #14 tablet Comments: Your diagnostics today were within normal limits. there is no sign of dehydration, electrolyte imbalance or infection. You should call Dr. Gandhi's office on tuesday to schedule a follow up appointment. The most important thing is to stay well hydrated. You may return to the emergency department at any time if necessary for new, worsening or uncontrollable symptoms.
[2018-05-14 02:21] VITALS: BP 140/98
== END 2018-05-14 02:20 | disposition home or self-care (01) ==
LOC: ED 00:30
DX: G89.18 Other acute postprocedural pain (principal); F17.200 Nicotine dependence, unspecified, uncomplicated
CPT/HCPCS: 36415; 80053; 83690; 85025; 96361; 96374; 96375; 99283

== ENCOUNTER 2018-08-22 15:37 | Emergency (ER) | payer MEDICAID ==
[2018-08-22 15:46] VITALS: BP 151/108
--- NOTE | 2018-08-22 15:55 | ED Physician Documentation ---
PD HPI HEENT - Stated complaint Stated Complaint: SOA POST SURGERY - Chief complaint Chief Complaint: Heent - History obtained from History obtained from: Patient - History of Present Illness Timing - onset: How many days ago (2-3) Timing - duration: Days (2-3) Timing - details: Gradual onset, Still present (has had feeling of soreness in uvula/throat. Today abruptly had feeling of gagging and something pressuring in the back of throat.) Location: Throat Worsens: [place], Other (no trouble breathing) Associated symptoms: No: Fever, Congestion, Unable to swallow, Swollen nodes Similar symptoms before: Has not had sx before Recently seen: Not recently seen (had tonsillectomy, uvuloplasty and adenoidectomy 3 months ago. Has had some persistent edema in soft palatte area. Today feeling there was tonsillar swelling causin his feeling of gagging at times) Review of Systems Constitutional: denies: Fever, Chills Nose: denies: Rhinorrhea / runny nose, Congestion Throat: denies: Sore throat Cardiac: reports: Chest pain / pressure Respiratory: denies: Dyspnea, Cough GI: denies: Abdominal Pain, Nausea, Vomiting, Diarrhea PD PAST MEDICAL HISTORY - Past Medical History Cardiovascular: None Respiratory: None Endocrine/Autoimmune: None GI: None : None HEENT: None Psych: None Musculoskeletal: None, Chronic back pain Derm: None - Past Surgical History Past Surgical History: Yes General: Other Ortho: Carpal Tunnel surgery HEENT: Tonsil/Adenoidectomy - Present Medications Home Medications: Ambulatory Orders Medication Instructions Recorded Confirmed Benzonatate [Tessalon] 100 mg PO TID PRN #25 capsule 08/22/18 Dexamethasone [Decadron] 4 mg PO DAILY #5 tablet 08/22/18 Diphenhydramine HCl [Allergy 25 mg PO Q6H PRN #240 ml 08/22/18 Relief] Gabapentin 600 mg PO TID 08/22/18 08/22/18 HYDROcod/ACETAM 5/325 [R[place] 5/325] 1 - 2 ea PO Q6H PRN 08/22/18 08/22/18 - Allergies Allergies/Adverse Reactions: Allergies Allergy/AdvReac Type Severity Reaction Status Date / Time aspirin AdvReac Mild Rash Verified 08/22/18 15:43 acetaminophen AdvReac Cramps Verified 08/22/18 15:43 hydromorphone [From Dilaudid] AdvReac Rash Verified 08/22/18 15:43 - Social History Does the pt smoke?: Yes Smoking Status: Current every day smoker Does the pt drink ETOH?: No Does the pt have substance abuse?: No - Immunizations Immunizations are current?: Yes - POLST Patient has POLST: No PD ED PE NORMAL - Vitals Vital signs reviewed: Yes - General General: Alert and oriented X 3, No acute distress, Well developed/nourished - HEENT HEENT: Moist mucous membranes, Pharynx benign - Neck Neck: Supple, no meningeal sign, No adenopathy - Cardiac Cardiac: RRR - Respiratory Respiratory: Clear bilaterally - Abdomen Abdomen: Soft, Non tender - Derm Derm: Normal color, Warm and dry - Extremities Extremities: No deformity, No tenderness to palpate, Normal ROM s pain - Neuro Neuro: Alert and oriented X 3, No motor deficit, Normal speech, Other (somewhat anxious. ) Results - Vitals Vitals: Oxygen O2 Source Room air PD MEDICAL DECISION MAKING - ED course Complexity details: considered differential (seems very sensitive gag reflex to even just look in throat. I imagine just little irritation will gag him. I dod not see more than mild edema in posterior portion of the palatte. ), d/w patient - Sepsis Event Vital Signs: Oxygen O2 Source Room air Departure - Departure Disposition: 01 Home, Self Care Clinical Impression: Throat irritation, Status post uvulopalatopharyngoplasty Condition: Stable Record reviewed to determine appropriate education?: Yes Follow-Up: BETSY AHMADI MD [Physician No Access] - Madison Mckee MD [Primary Care Provider] - Prescriptions: Benzonatate [Tessalon] 100 mg PO TID PRN #25 capsule PRN Reason: Cough Dexamethasone [Decadron] 4 mg PO DAILY #5 tablet Diphenhydramine HCl [Allergy Relief] 25 mg PO Q6H PRN #240 ml PRN Reason: Pain Comments: Decadron steroid daily for 5 more days to reduce inflammation hopefully. To reduce the irritation in the throat, can try Tessalon. This is used to reduce cough irritation and will see if it works for the area of the throat that is bothering you. You can just use Benadryl liquid swish and swallow which will have a local numbing effect and perhaps try to reduce some of the swelling as well. Follow-up with Dr. Ahmadi regarding any further intervention for the area. Discharge Date/Time: 08/22/18 16:51
[2018-08-22] MEDS ORDERED: diphenhydrAMINE ELIXIR 25 MG/10 ML UDC PO STA (16:21)
[2018-08-22] MEDS ORDERED: DEXAMETHASONE 10 MG/ML VIAL PO STA (16:21)
[2018-08-22] MEDS ORDERED: oxyCODONE 5 MG TABLET PO STA (16:21)
[2018-08-22] MEDS ORDERED: BENZONATATE 100 MG CAPSULE PO STA (16:23)
[2018-08-22] MEDS ORDERED: CHERRY SYRUP 10 ML UDC PO ONE (16:27)
== END 2018-08-22 16:51 | disposition home or self-care (01) ==
LOC: ED 15:37
DX: R07.0 Pain in throat (principal); Z98.890 Other specified postprocedural states; F17.200 Nicotine dependence, unspecified, uncomplicated
CPT/HCPCS: 99283; A9270